=== PATIENT | male | born 2000 | race Caucasian/White ===

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

== ENCOUNTER 2018-04-25 04:18 | Emergency (ER) | payer OTHER ==
[~2018-04-25] VITALS: Ht 182.9 cm; Wt 82.3 kg
[~2018-04-25 04:18] MED LIST changes: +LAMISIL250 M1 PO
[2018-04-25 04:21] VITALS: TEMP 98.1
[2018-04-25 04:47] LABS: BASO # 0.1 (0.0-0.2); BASO % 0.9 % (0.0-2.0); EOS # 0.1 (0.0-0.7); EOS % 0.7 % (0-4.0); GRAN # 4.7 (1.4-6.5); GRAN % 62.2 % (42.2-75.2); HEMATOCRIT 45.8 % (36.0-47.0); HEMOGLOBIN 15.4 g/dl (12.5-16.1); LYMPH # 1.8 (1.2-3.4); LYMPH % 23.2 % (20.0-51.0); MEAN CELL VOLUME 89 fl (80.0-95.0); MEAN CORPUSCULAR HEMOGLOBIN 30 pg (26.0-32.0); MEAN CORPUSCULAR HGB CONC 34 g/dl (33.0-37.0); MEAN PLATELET VOLUME 10.4 fl (7.4-10.4); MONO % 12.9 % (1.7-9.3); PLATELET COUNT 200 K/mm3 (130-400); RED BLOOD COUNT 5.17 M/mm3 (4.20-5.60); REDCELL DISTRIBUTION WIDTH-CV 12.1 % (11.5-14.5)
[2018-04-25 04:55] LABS: COLLECTION METHOD CLEAN CATCH
[2018-04-25 04:57] LABS: BILIRUBIN,TOTAL 2.4 mg/dL (0.0-1.0); CALCIUM 9.9 mg/dL (8.4-10.2); CREATININE, serum 1.06 mg/dL (0.66-1.25); POTASSIUM 3.8 mmol/L (3.4-5.0); TOTAL PROTEIN 8.7 gm/dL (6.4-8.2)
[2018-04-25 05:01] LABS: MUCOUS Present /lpf; PH 5 (5-8); SQUAMOUS EPITHELIAL None Seen /hpf; URINE APPEARANCE Clear; URINE BACTERIA None Seen /hpf; URINE BILIRUBIN Negative (NEGATIVE); URINE BLOOD Negative (NEGATIVE); URINE COLOR Yellow; URINE GLUCOSE Negative (NEGATIVE); URINE KETONE Trace (NEGATIVE); URINE LEUKOCYTE ESTERASE Negative (NEGATIVE); URINE NITRATE Negative (NEGATIVE); URINE PROTEIN(semi-quant) Negative (NEGATIVE); URINE RBC None Seen /hpf; URINE UROBILINOGEN Negative (NEGATIVE)
[2018-04-25 06:01] LABS: INR 1.1 (0.8-3.0)
[2018-04-25 06:18] LABS: TROPONIN-I 0.29 ng/mL (0.000-0.035)
[2018-04-25 06:40] VITALS: BP 124/72; PULSE 69
== END 2018-04-25 06:43 | disposition left against medical advice (07) ==
LOC: COL.ER 04:18
PROVIDERS: Emergency Medicine
DX: R10.9 Unspecified abdominal pain (principal); R07.89 Other chest pain; R79.89 Other specified abnormal findings of blood chemistry; F14.10 Cocaine abuse, uncomplicated; F17.210 Nicotine dependence, cigarettes, uncomplicated
CPT/HCPCS: J2765; J3010; J7030

== ENCOUNTER 2018-04-25 07:48 | Emergency (ER) | payer OTHER ==
[~2018-04-25] VITALS: Ht 182.9 cm; Wt 82.7 kg
[2018-04-25 07:49] VITALS: TEMP 97.5
[2018-04-25 12:00] VITALS: BP 110/58; PULSE 64
== END 2018-04-25 12:00 | disposition short-term general hospital (02) ==
LOC: COL.ER 07:48
DX: R07.89 Other chest pain (principal); R79.89 Other specified abnormal findings of blood chemistry; F14.10 Cocaine abuse, uncomplicated
CPT/HCPCS: J2405; J3010; J7030

== ENCOUNTER 2018-12-21 19:11 | Emergency (ER) | payer OTHER ==
[~2018-12-21] VITALS: Ht 195.6 cm; Wt 85.0 kg
[2018-12-21 19:30] VITALS: BP 137/63; TEMP 97.7
[2018-12-21 20:08] VITALS: PULSE 68
[2018-12-22] MEDS ORDERED: POLYMYXIN B/TRIMETH OS (13:51)
== END 2018-12-21 20:08 | disposition home or self-care (01) ==
LOC: COL.ER 19:11
DX: S60.852A Superficial foreign body of left wrist, initial encounter (principal); F91.3 Oppositional defiant disorder; X58.XXXA Exposure to other specified factors, initial encounter

== ENCOUNTER 2018-12-22 13:12 | Emergency (ER) | payer OTHER ==
[~2018-12-22] VITALS: Ht 182.9 cm; Wt 85.0 kg
[2018-12-22 13:25] VITALS: BP 126/63; TEMP 98.5
[2018-12-22] MEDS ORDERED: POLYMYXIN B/TRIMETH OS (13:51)
[2018-12-22 13:56] VITALS: PULSE 75
== END 2018-12-22 13:56 | disposition home or self-care (01) ==
LOC: COL.ER 13:12
DX: H10.9 Unspecified conjunctivitis (principal); F90.9 Attention-deficit hyperactivity disorder, unspecified type; Z87.891 Personal history of nicotine dependence

== ENCOUNTER 2020-12-14 21:44 | Emergency (ER) | payer OTHER ==
[~2020-12-14] VITALS: Ht 182.9 cm; Wt 94.0 kg
[~2020-12-14 21:44] MED LIST changes: +POLYMYXIN B/TRIMETH OS
[2020-12-14 22:03] VITALS: TEMP 97.9
[2020-12-14] MEDS ORDERED: ILOTYCIN5 MG/GM OP (23:43)
[2020-12-14 23:52] VITALS: BP 152/78; PULSE 76
== END 2020-12-14 23:52 | disposition home or self-care (01) ==
LOC: COL.ER 21:44
DX: S05.02XA Injury of conjunctiva and corneal abrasion without foreign body, left eye, initial encounter (principal); W26.8XXA Contact with other sharp object(s), not elsewhere classified, initial encounter; Y99.0 Civilian activity done for income or pay

== ENCOUNTER → 2023-10-11 | Outpatient (CLI) | payer BC ==
[~2023-10-11] MED LIST changes: +ILOTYCIN5 MG/GM OP
== END ==
LOC: COL.RAD 13:41
DX: I86.1 Scrotal varices (principal)